=== PATIENT | male | born 2000 | race Hispanic/Latino ===

== ENCOUNTER 2021-07-25 19:32 | Emergency (ER) | payer OTHER ==
[~2021-07-25] VITALS: Ht 190.5 cm; Wt 55.3 kg
[2021-07-25] MEDS ORDERED: LIDOCAINE HCL MPF 1% 5ML VIAL ONE (19:57)
[2021-07-25] MEDS ORDERED: ACETAMINOPHEN 500 MG TABLET PO ONE (20:00)
[2021-07-25] MEDS ORDERED: LIDOCAINE HCL 1% 20 ML VIAL INJ SCH (20:00)
[2021-07-25 20:41] VITALS: BP 124/81
== END 2021-07-25 21:20 | disposition home or self-care (01) ==
LOC: EDH 19:32
DX: S02.5XXA Fracture of tooth (traumatic), initial encounter for closed fracture (principal); S01.511A Laceration without foreign body of lip, initial encounter; Y04.0XXA Assault by unarmed brawl or fight, initial encounter; Y93.89 Activity, other specified; Y92.89 Other specified places as the place of occurrence of the external cause; Y99.8 Other external cause status
CPT/HCPCS: 12011; 99283; J3490